=== PATIENT | male | born 1980 | race Caucasian/White ===

== ENCOUNTER 2019-06-30 14:43 | Emergency (ER) | payer OTHER, SELFPAY ==
[2019-06-30 14:49] VITALS: BP 139/84; PULSE 68; RESP 16; TEMP 36.3; O2SAT 99
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
[2019-06-30] MEDS: Ibuprofen 600 MG TAB PO (15:19)
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
--- NOTE | 2019-06-30 16:19 | DI.VRAD_ITS ---
EXAM: XR Chest, 2 Views EXAM DATE/TIME: 06/30/2019 3:15 PM CLINICAL HISTORY: 38 years old, male; Injury or trauma; Fall; Initial encounter; Blunt trauma (contusions or hematomas); Injury details: Shoulder injury TECHNIQUE: Imaging protocol: XR of the chest Views: 2 views. COMPARISON: No relevant prior studies available. FINDINGS: The lung moran are clear bilaterally. No focal pulmonary consolidation is present. The cardiac silhouette is within normal limits. The costophrenic angles are sharp. The bony structures appear unremarkable. IMPRESSION: No evidence of acute cardiopulmonary disease. Dictated and Authenticated by: Narinder Osullivan MD. Ordering:BON Murray MD
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
== END 2019-06-30 17:50 | disposition home or self-care (01) ==
PROVIDERS: Emergency Provider Physician Assistant
DX: S49.82XA Other specified injuries of left shoulder and upper arm, initial encounter (principal); S43.102A Unspecified dislocation of left acromioclavicular joint, initial encounter; V18.0XXA Pedal cycle driver injured in noncollision transport accident in nontraffic accident, initial encounter; Y93.55 Activity, bike riding
CPT/HCPCS: 23540; 99284; 71046; 73030; 99282; L3650